=== PATIENT | male | born 1955 | race Caucasian/White ===

== ENCOUNTER 2021-10-01 08:59 | Inpatient (IN) ==
[2021-10-01] MEDS ORDERED: Ipratropium/Albuterol Neb 3 ML IH ONE (09:03)
[2021-10-01] MEDS ORDERED: predniSONE 20 MG TABLET PO ONE (09:03)
[2021-10-01] MEDS ORDERED: levoFLOXacin 750 MG/150 ML 750 MG/150 ML BAG IVPB ONE (09:13)
[2021-10-01 09:43] LABS: Basophils % 0.1 %; Hematocrit 44.9 % (37.5-50.1); Hemoglobin 14.5 g/dL (12.9-16.9); Immature Granulocytes % 0.5 % (0-4); Lymphocytes # 0.6 K/mcL (0.6-4.6); Lymphocytes % 7.5 %; Mean Corpuscular HGB Conc 32.3 g/dL (31.6-35.5); Mean Corpuscular Hemoglobin 29.4 pg (28.0-33.3); Mean Corpuscular Volume 91.1 fL (83.0-100.0); Mean Platelet Volume 9.7 fL (9.4-12.4); Monocytes # 0.3 K/mcL (0.0-1.3); Monocytes % 4.1 %; Neutrophils # 6.7 K/mcL (1.6-8.9); Platelet Count 210 K/mcL (140-400); Red Blood Count 4.93 M/mcL (4.19-5.50); Red Cell Distribution Width 12.7 % (11.5-14.5); Segmented Neutrophils % 87.8 %; White Blood Count 7.6 K/mcL (4.3-11.1)
[2021-10-01 10:22] LABS: Influenza A PCR Negative (Negative); Influenza B PCR Negative (Negative); Resp. Syncytial Virus PCR Negative (Negative)
[2021-10-01 10:26] LABS: SARS-CoV-2 by PCR (In House) Positive (Negative)
[2021-10-01 10:36] LABS: BUN/Creatinine Ratio 29 (6-26); Blood Urea Nitrogen 29 mg/dL (8-23); Calcium 8.5 mg/dL (8.6-10.3); Carbon Dioxide 25 mEq/L (23-29); Chloride 102 mEq/L (98-107); Glucose 168 mg/dL (70-105); Osmolality,Calculated 302 (280-300); Potassium 3.8 mEq/L (3.5-5.1); Sodium 141 mEq/L (136-145); Troponin I 0.07 ng/mL (< 0.04); eGFR For African Americans > 60 (> 60); eGFR For Non-African Americans > 60 (> 60)
[2021-10-01] MEDS ORDERED: Naloxone 0.4 MG/ML INJ IVP PRN (10:56)
[2021-10-01] MEDS ORDERED: Ipratropium 1 PUFF INHALER IH PRN (11:04)
[2021-10-01] MEDS ORDERED: Baclofen 10 MG TABLET PO PRN (11:07)
[2021-10-01 11:40] LABS: Alanine Aminotransferase 35 Units/L (7-52); Albumin 3.5 g/dL (3.5-5.7); Alkaline Phosphatase 115 Units/L (34-104); Aspartate Amino Transferase 60 Units/L (13-39); Bilirubin,Direct 0.2 mg/dL (0.0-0.2); Bilirubin,Indirect 0.6 mg/dL (0.0-1.0); Bilirubin,Total 0.8 mg/dL (0.3-1.0); Globulin 3.6 g/dL (2.4-3.5); Total Protein 7.1 g/dL (6.4-8.9)
[2021-10-01] MEDS ORDERED: Remdesivir 200 MG in 0.9 % Sodium Chloride 100 ML IVPB ONE (17:00)
[2021-10-01] MEDS ORDERED: Heparin 25,000UNIT/250ML 1/2NS 25,000 UNIT/250 ML IV.SOLN IVC SCH (17:15)
[2021-10-01] MEDS ORDERED: *HR* Heparin 5,000 UNIT/ML VIAL IVP ONE (17:15)
[2021-10-01] MEDS ORDERED: *HR* Heparin 5,000 UNIT/ML VIAL IVP PRN (17:15)
[2021-10-01 18:23] LABS: Hematocrit 42.5 % (37.5-50.1); Hemoglobin 14.4 g/dL (12.9-16.9); Mean Corpuscular HGB Conc 33.9 g/dL (31.6-35.5); Mean Corpuscular Hemoglobin 29.9 pg (28.0-33.3); Mean Corpuscular Volume 88.2 fL (83.0-100.0); Mean Platelet Volume 9.5 fL (9.4-12.4); Platelet Count 202 K/mcL (140-400); Red Blood Count 4.82 M/mcL (4.19-5.50); Red Cell Distribution Width 12.5 % (11.5-14.5)
[2021-10-01 18:31] LABS: INR 1.4; Prothrombin Time 15.4 Seconds (9.4-12.1)
[2021-10-01 18:34] LABS: Heparin anti-factor XA UFH < 0.04 IU/mL (0.30-0.70)
[2021-10-01] MEDS: Magnesium Oxide 400 MG TABLET PO SCH (20:14)
[2021-10-01] MEDS: Budesonide/Formoterol 160/4.5 1 PUFF INH IH SCH (22:13)
[2021-10-02 02:25] LABS: Basophils % 0.1 %; Hematocrit 43.9 % (37.5-50.1); Hemoglobin 14.7 g/dL (12.9-16.9); Immature Granulocytes % 0.6 % (0-4); Lymphocytes # 0.6 K/mcL (0.6-4.6); Lymphocytes % 6.9 %; Mean Corpuscular HGB Conc 33.5 g/dL (31.6-35.5); Mean Corpuscular Hemoglobin 29.9 pg (28.0-33.3); Mean Corpuscular Volume 89.2 fL (83.0-100.0); Monocytes # 0.6 K/mcL (0.0-1.3); Monocytes % 6.8 %; Neutrophils # 7.1 K/mcL (1.6-8.9); Platelet Count 207 K/mcL (140-400); Red Blood Count 4.92 M/mcL (4.19-5.50); Red Cell Distribution Width 12.5 % (11.5-14.5); Segmented Neutrophils % 85.6 %; White Blood Count 8.3 K/mcL (4.3-11.1)
[2021-10-02 02:37] LABS: Heparin anti-factor XA UFH 0.23 IU/mL (0.30-0.70)
[2021-10-02 02:45] LABS: BUN/Creatinine Ratio 36 (6-26); Blood Urea Nitrogen 33 mg/dL (8-23); Calcium 8.3 mg/dL (8.6-10.3); Carbon Dioxide 27 mEq/L (23-29); Chloride 103 mEq/L (98-107); Glucose 145 mg/dL (70-105); Osmolality,Calculated 300 (280-300); Potassium 4.3 mEq/L (3.5-5.1); Sodium 140 mEq/L (136-145); eGFR For African Americans > 60 (> 60); eGFR For Non-African Americans > 60 (> 60)
[2021-10-02 02:46] LABS: Albumin 3.4 g/dL (3.5-5.7); Bilirubin,Direct 0.2 mg/dL (0.0-0.2); Bilirubin,Indirect 0.5 mg/dL (0.0-1.0); Bilirubin,Total 0.7 mg/dL (0.3-1.0); Globulin 3.5 g/dL (2.4-3.5); Total Protein 6.9 g/dL (6.4-8.9)
[2021-10-02] MEDS: *HR* Heparin 5,000 UNIT/ML VIAL IVP PRN ×2 (03:36→10:47)
[2021-10-02] MEDS ORDERED: *HR* Enoxaparin 40 MG/0.4 ML SYRINGE SQ SCH (06:00)
[2021-10-02] MEDS: Budesonide/Formoterol 160/4.5 1 PUFF INH IH SCH ×2 (08:46→19:54)
[2021-10-02] MEDS: Magnesium Oxide 400 MG TABLET PO SCH ×2 (09:00→20:16)
[2021-10-02] MEDS: Aspirin Enteric Coated 81 MG Tablet PO SCH (09:00)
[2021-10-02] MEDS ORDERED: Perflutren Lipid Microsphere 1.3 ML in 0.9 % Sodium Chloride 8.7 ML IVP PRN (09:54)
[2021-10-02] MEDS ORDERED: Isovue-370 500 ML BOTTLE IVP ONE (15:52)
[2021-10-02] MEDS ORDERED: *HR* Heparin 5,000 UNIT/ML VIAL IVP PRN ×2 (16:07)
[2021-10-02 17:06] LABS: Hematocrit 46.4 % (37.5-50.1); Hemoglobin 15.2 g/dL (12.9-16.9); Mean Corpuscular HGB Conc 32.8 g/dL (31.6-35.5); Mean Corpuscular Hemoglobin 29.9 pg (28.0-33.3); Mean Corpuscular Volume 91.2 fL (83.0-100.0); Mean Platelet Volume 9.9 fL (9.4-12.4); Platelet Count 256 K/mcL (140-400); Red Blood Count 5.09 M/mcL (4.19-5.50); Red Cell Distribution Width 12.6 % (11.5-14.5); White Blood Count 9.5 K/mcL (4.3-11.1)
[2021-10-02 17:18] LABS: Heparin anti-factor XA UFH 0.33 IU/mL (0.30-0.70); INR 1.3; Prothrombin Time 14.5 Seconds (9.4-12.1)
[2021-10-02] MEDS: Remdesivir 100 MG in 0.9 % Sodium Chloride 100 ML IVPB SCH (17:43)
[2021-10-02] MEDS: Furosemide 40 MG/4 ML VIAL IVP SCH (17:43)
[2021-10-02] MEDS: Heparin 25,000UNIT/250ML 1/2NS 25,000 UNIT/250 ML IV.SOLN IVC SCH (18:02)
[2021-10-03 00:24] LABS: Basophils % 0.2 %; Hematocrit 45.5 % (37.5-50.1); Hemoglobin 15.1 g/dL (12.9-16.9); Immature Granulocytes % 0.7 % (0-4); Lymphocytes # 0.7 K/mcL (0.6-4.6); Lymphocytes % 7.2 %; Mean Corpuscular HGB Conc 33.2 g/dL (31.6-35.5); Mean Corpuscular Hemoglobin 30.2 pg (28.0-33.3); Mean Platelet Volume 9.9 fL (9.4-12.4); Monocytes # 0.5 K/mcL (0.0-1.3); Monocytes % 4.8 %; Neutrophils # 8.2 K/mcL (1.6-8.9); Platelet Count 255 K/mcL (140-400); Red Cell Distribution Width 12.7 % (11.5-14.5); Segmented Neutrophils % 87.1 %; White Blood Count 9.4 K/mcL (4.3-11.1)
[2021-10-03 00:39] LABS: Albumin 3.4 g/dL (3.5-5.7); Albumin/Globulin Ratio 0.9 (1.1-2.2); Bilirubin,Direct 0.2 mg/dL (0.0-0.2); Bilirubin,Indirect 0.6 mg/dL (0.0-1.0); Bilirubin,Total 0.8 mg/dL (0.3-1.0); Globulin 3.8 g/dL (2.4-3.5); Total Protein 7.2 g/dL (6.4-8.9)
[2021-10-03 00:40] LABS: BUN/Creatinine Ratio 38 (6-26); Blood Urea Nitrogen 36 mg/dL (8-23); Calcium 8.4 mg/dL (8.6-10.3); Carbon Dioxide 29 mEq/L (23-29); Chloride 101 mEq/L (98-107); Glucose 177 mg/dL (70-105); Osmolality,Calculated 301 (280-300); Potassium 3.8 mEq/L (3.5-5.1); Sodium 139 mEq/L (136-145); eGFR For African Americans > 60 (> 60); eGFR For Non-African Americans > 60 (> 60)
[2021-10-03] MEDS ORDERED: *HR* LORazepam 2 MG/ML VIAL IVP ONE (03:36)
[2021-10-03] MEDS: Budesonide/Formoterol 160/4.5 1 PUFF INH IH SCH ×2 (08:29→21:27)
[2021-10-03] MEDS: Furosemide 40 MG/4 ML VIAL IVP SCH (09:45)
[2021-10-03] MEDS: Dexamethasone Sodium Phos/PF 10 MG/ML VIAL IVP SCH (09:46)
[2021-10-03] MEDS: Aspirin Enteric Coated 81 MG Tablet PO SCH (09:47)
[2021-10-03] MEDS: Magnesium Oxide 400 MG TABLET PO SCH ×2 (09:47→20:56)
[2021-10-03] MEDS ORDERED: Dextrose Gel 15 GM/37.5 ML TUBE PO PRN ×2 (16:26)
[2021-10-03] MEDS ORDERED: *HR* Dextrose 50 % in Water (Syg) 50 ML SYRINGE IVP PRN (16:26)
[2021-10-03] MEDS ORDERED: D5% in Water 1,000 ML IVC PRN (16:26)
[2021-10-03] MEDS: Remdesivir 100 MG in 0.9 % Sodium Chloride 100 ML IVPB SCH (17:09)
[2021-10-03] MEDS: Heparin 25,000UNIT/250ML 1/2NS 25,000 UNIT/250 ML IV.SOLN IVC SCH (17:14)
[2021-10-03 17:29] LABS: Estimated Average Glucose 137 mg/dl; Hemoglobin A1C 6.4 %
[2021-10-03] MEDS: Insulin LISPRO 300 UNITS/3 ML VIAL SUBQ SCH ×2 (17:35→20:58)
[2021-10-04 00:39] LABS: Basophils % 0.3 %; Hematocrit 44.6 % (37.5-50.1); Hemoglobin 14.7 g/dL (12.9-16.9); Immature Granulocytes % 0.8 % (0-4); Lymphocytes # 0.8 K/mcL (0.6-4.6); Lymphocytes % 5.6 %; Mean Corpuscular Hemoglobin 30.1 pg (28.0-33.3); Mean Corpuscular Volume 91.4 fL (83.0-100.0); Mean Platelet Volume 9.9 fL (9.4-12.4); Monocytes # 0.5 K/mcL (0.0-1.3); Monocytes % 3.2 %; Neutrophils # 13.3 K/mcL (1.6-8.9); Nucleated Red Blood Cells 0.1 /100 WBC (0); Platelet Count 207 K/mcL (140-400); Red Blood Count 4.88 M/mcL (4.19-5.50); Red Cell Distribution Width 12.6 % (11.5-14.5); Segmented Neutrophils % 90.1 %
[2021-10-04 00:44] LABS: White Blood Count 14.8 K/mcL (4.3-11.1)
[2021-10-04 00:52] LABS: BUN/Creatinine Ratio 49 (6-26); Blood Urea Nitrogen 41 mg/dL (8-23); Calcium 8.2 mg/dL (8.6-10.3); Carbon Dioxide 27 mEq/L (23-29); Chloride 101 mEq/L (98-107); Glucose 165 mg/dL (70-105); Osmolality,Calculated 294 (280-300); Potassium 3.9 mEq/L (3.5-5.1); Sodium 135 mEq/L (136-145); eGFR For African Americans > 60 (> 60); eGFR For Non-African Americans > 60 (> 60)
[2021-10-04 00:53] LABS: Albumin 3.2 g/dL (3.5-5.7); Bilirubin,Direct 0.2 mg/dL (0.0-0.2); Bilirubin,Indirect 0.5 mg/dL (0.0-1.0); Bilirubin,Total 0.7 mg/dL (0.3-1.0); Globulin 3.3 g/dL (2.4-3.5); Total Protein 6.5 g/dL (6.4-8.9)
[2021-10-04] MEDS: Budesonide/Formoterol 160/4.5 1 PUFF INH IH SCH ×2 (07:29→20:01)
[2021-10-04] MEDS: Furosemide 40 MG/4 ML VIAL IVP SCH (08:32)
[2021-10-04] MEDS: Aspirin Enteric Coated 81 MG Tablet PO SCH (08:32)
[2021-10-04] MEDS: Magnesium Oxide 400 MG TABLET PO SCH ×2 (08:32→21:08)
[2021-10-04] MEDS: Insulin LISPRO 300 UNITS/3 ML VIAL SUBQ SCH ×4 (08:33→21:08)
[2021-10-04] MEDS: Dexamethasone Sodium Phos/PF 10 MG/ML VIAL IVP SCH (08:33)
[2021-10-04] MEDS: Heparin 25,000UNIT/250ML 1/2NS 25,000 UNIT/250 ML IV.SOLN IVC SCH (16:27)
[2021-10-04] MEDS: Remdesivir 100 MG in 0.9 % Sodium Chloride 100 ML IVPB SCH (17:26)
[2021-10-05 00:52] LABS: Basophils # 0.1 K/mcL (0.0-0.2); Basophils % 0.3 %; Hematocrit 45.6 % (37.5-50.1); Hemoglobin 15.2 g/dL (12.9-16.9); Immature Granulocytes % 1.4 % (0-4); Lymphocytes % 4.9 %; Mean Corpuscular HGB Conc 33.3 g/dL (31.6-35.5); Mean Corpuscular Hemoglobin 30.1 pg (28.0-33.3); Mean Corpuscular Volume 90.3 fL (83.0-100.0); Mean Platelet Volume 10.2 fL (9.4-12.4); Monocytes # 0.9 K/mcL (0.0-1.3); Monocytes % 4.4 %; Neutrophils # 17.7 K/mcL (1.6-8.9); Platelet Count 217 K/mcL (140-400); Red Blood Count 5.05 M/mcL (4.19-5.50); Red Cell Distribution Width 12.5 % (11.5-14.5); White Blood Count 19.9 K/mcL (4.3-11.1)
[2021-10-05 01:11] LABS: BUN/Creatinine Ratio 44 (6-26); Blood Urea Nitrogen 42 mg/dL (8-23); Calcium 8.3 mg/dL (8.6-10.3); Carbon Dioxide 28 mEq/L (23-29); Chloride 99 mEq/L (98-107); Glucose 186 mg/dL (70-105); Osmolality,Calculated 297 (280-300); Potassium 3.9 mEq/L (3.5-5.1); Sodium 136 mEq/L (136-145); eGFR For African Americans > 60 (> 60); eGFR For Non-African Americans > 60 (> 60)
[2021-10-05 01:12] LABS: Albumin 3.3 g/dL (3.5-5.7); Albumin/Globulin Ratio 1.1 (1.1-2.2); Bilirubin,Direct 0.2 mg/dL (0.0-0.2); Bilirubin,Indirect 0.6 mg/dL (0.0-1.0); Bilirubin,Total 0.8 mg/dL (0.3-1.0); Globulin 3.1 g/dL (2.4-3.5); Total Protein 6.4 g/dL (6.4-8.9)
[2021-10-05 01:20] LABS: Heparin anti-factor XA UFH 0.38 IU/mL (0.30-0.70)
[2021-10-05] MEDS: Dexamethasone Sodium Phos/PF 10 MG/ML VIAL IVP SCH (07:47)
[2021-10-05] MEDS: Furosemide 40 MG/4 ML VIAL IVP SCH (07:47)
[2021-10-05] MEDS: Aspirin Enteric Coated 81 MG Tablet PO SCH (07:48)
[2021-10-05] MEDS: Insulin LISPRO 300 UNITS/3 ML VIAL SUBQ SCH ×4 (07:48→20:39)
[2021-10-05] MEDS: Cholecalciferol (D-3) 1,000 UNIT (25MCG) TABLET PO SCH (07:48)
[2021-10-05] MEDS: Magnesium Oxide 400 MG TABLET PO SCH ×2 (07:48→20:43)
[2021-10-05] MEDS: Budesonide/Formoterol 160/4.5 1 PUFF INH IH SCH ×2 (08:12→20:19)
[2021-10-05] MEDS: Heparin 25,000UNIT/250ML 1/2NS 25,000 UNIT/250 ML IV.SOLN IVC SCH (14:00)
[2021-10-05] MEDS: Remdesivir 100 MG in 0.9 % Sodium Chloride 100 ML IVPB SCH (17:01)
[2021-10-05] MEDS ORDERED: Saline Nasal Spray 44 ML BOTTLE NS PRN (17:12)
[2021-10-05] MEDS: Acetaminophen 325 MG TABLET PO PRN (17:55)
[2021-10-06 01:12] LABS: Basophils % 0.2 %; Hematocrit 45.2 % (37.5-50.1); Hemoglobin 15.2 g/dL (12.9-16.9); Immature Granulocytes % 2.3 % (0-4); Lymphocytes # 0.8 K/mcL (0.6-4.6); Lymphocytes % 3.5 %; Mean Corpuscular HGB Conc 33.6 g/dL (31.6-35.5); Mean Corpuscular Hemoglobin 30.1 pg (28.0-33.3); Mean Corpuscular Volume 89.5 fL (83.0-100.0); Mean Platelet Volume 10.2 fL (9.4-12.4); Monocytes # 0.9 K/mcL (0.0-1.3); Monocytes % 4.3 %; Neutrophils # 19.4 K/mcL (1.6-8.9); Platelet Count 227 K/mcL (140-400); Red Blood Count 5.05 M/mcL (4.19-5.50); Red Cell Distribution Width 12.3 % (11.5-14.5); Segmented Neutrophils % 89.7 %; White Blood Count 21.7 K/mcL (4.3-11.1)
[2021-10-06 01:37] LABS: BUN/Creatinine Ratio 49 (6-26); Blood Urea Nitrogen 44 mg/dL (8-23); Calcium 8.2 mg/dL (8.6-10.3); Carbon Dioxide 31 mEq/L (23-29); Chloride 99 mEq/L (98-107); Glucose 151 mg/dL (70-105); Osmolality,Calculated 294 (280-300); Potassium 4.2 mEq/L (3.5-5.1); Sodium 135 mEq/L (136-145); eGFR For African Americans > 60 (> 60); eGFR For Non-African Americans > 60 (> 60)
[2021-10-06 01:38] LABS: Albumin 3.2 g/dL (3.5-5.7); Albumin/Globulin Ratio 1.1 (1.1-2.2); Bilirubin,Direct 0.2 mg/dL (0.0-0.2); Bilirubin,Indirect 0.6 mg/dL (0.0-1.0); Bilirubin,Total 0.8 mg/dL (0.3-1.0); Globulin 2.8 g/dL (2.4-3.5)
[2021-10-06] MEDS: Budesonide/Formoterol 160/4.5 1 PUFF INH IH SCH ×2 (07:49→20:07)
[2021-10-06] MEDS: Insulin LISPRO 300 UNITS/3 ML VIAL SUBQ SCH ×4 (08:13→20:35)
[2021-10-06] MEDS: Furosemide 40 MG/4 ML VIAL IVP SCH (09:13)
[2021-10-06] MEDS: Cholecalciferol (D-3) 1,000 UNIT (25MCG) TABLET PO SCH (09:13)
[2021-10-06] MEDS: Dexamethasone Sodium Phos/PF 10 MG/ML VIAL IVP SCH (09:13)
[2021-10-06] MEDS: Aspirin Enteric Coated 81 MG Tablet PO SCH (09:13)
[2021-10-06] MEDS: Magnesium Oxide 400 MG TABLET PO SCH ×2 (09:13→20:35)
[2021-10-06] MEDS: Heparin 25,000UNIT/250ML 1/2NS 25,000 UNIT/250 ML IV.SOLN IVC SCH (12:02)
[2021-10-07 02:26] LABS: Basophils # 0.1 K/mcL (0.0-0.2); Basophils % 0.3 %; Hematocrit 49.5 % (37.5-50.1); Hemoglobin 16.1 g/dL (12.9-16.9); Immature Granulocytes % 1.6 % (0-4); Lymphocytes # 0.7 K/mcL (0.6-4.6); Lymphocytes % 3.6 %; Mean Corpuscular HGB Conc 32.5 g/dL (31.6-35.5); Mean Corpuscular Hemoglobin 29.1 pg (28.0-33.3); Mean Corpuscular Volume 89.4 fL (83.0-100.0); Mean Platelet Volume 10.3 fL (9.4-12.4); Monocytes # 0.9 K/mcL (0.0-1.3); Monocytes % 4.3 %; Neutrophils # 18.3 K/mcL (1.6-8.9); Platelet Count 263 K/mcL (140-400); Red Blood Count 5.54 M/mcL (4.19-5.50); Red Cell Distribution Width 12.4 % (11.5-14.5); Segmented Neutrophils % 90.2 %; White Blood Count 20.3 K/mcL (4.3-11.1)
[2021-10-07 02:44] LABS: BUN/Creatinine Ratio 47 (6-26); Blood Urea Nitrogen 45 mg/dL (8-23); Calcium 7.9 mg/dL (8.6-10.3); Carbon Dioxide 33 mEq/L (23-29); Chloride 95 mEq/L (98-107); Glucose 158 mg/dL (70-105); Osmolality,Calculated 295 (280-300); Potassium 4.1 mEq/L (3.5-5.1); Sodium 135 mEq/L (136-145); eGFR For African Americans > 60 (> 60); eGFR For Non-African Americans > 60 (> 60)
[2021-10-07] MEDS: Budesonide/Formoterol 160/4.5 1 PUFF INH IH SCH ×2 (07:55→20:02)
[2021-10-07] MEDS: Magnesium Oxide 400 MG TABLET PO SCH ×2 (08:54→20:56)
[2021-10-07] MEDS: Aspirin Enteric Coated 81 MG Tablet PO SCH (08:54)
[2021-10-07] MEDS: Cholecalciferol (D-3) 1,000 UNIT (25MCG) TABLET PO SCH (08:54)
[2021-10-07] MEDS: Insulin LISPRO 300 UNITS/3 ML VIAL SUBQ SCH ×4 (08:54→22:33)
[2021-10-07] MEDS: Dexamethasone Sodium Phos/PF 10 MG/ML VIAL IVP SCH (08:55)
[2021-10-07] MEDS: Furosemide 40 MG/4 ML VIAL IVP SCH (08:55)
[2021-10-08 05:12] LABS: Basophils % 0.2 %; Eosinophils % 0.2 %; Hematocrit 50.1 % (37.5-50.1); Hemoglobin 16.2 g/dL (12.9-16.9); Immature Granulocytes % 1.6 % (0-4); Lymphocytes # 0.9 K/mcL (0.6-4.6); Lymphocytes % 4.4 %; Mean Corpuscular HGB Conc 32.3 g/dL (31.6-35.5); Mean Corpuscular Hemoglobin 29.1 pg (28.0-33.3); Mean Corpuscular Volume 89.9 fL (83.0-100.0); Mean Platelet Volume 10.5 fL (9.4-12.4); Monocytes # 0.8 K/mcL (0.0-1.3); Monocytes % 3.9 %; Neutrophils # 18.9 K/mcL (1.6-8.9); Platelet Count 260 K/mcL (140-400); Red Blood Count 5.57 M/mcL (4.19-5.50); Red Cell Distribution Width 12.5 % (11.5-14.5); Segmented Neutrophils % 89.7 %; White Blood Count 21.1 K/mcL (4.3-11.1)
[2021-10-08 05:29] LABS: BUN/Creatinine Ratio 41 (6-26); Blood Urea Nitrogen 45 mg/dL (8-23); Calcium 8.4 mg/dL (8.6-10.3); Carbon Dioxide 35 mEq/L (23-29); Chloride 94 mEq/L (98-107); Glucose 143 mg/dL (70-105); Osmolality,Calculated 292 (280-300); Potassium 4.4 mEq/L (3.5-5.1); Sodium 134 mEq/L (136-145); eGFR For African Americans > 60 (> 60); eGFR For Non-African Americans > 60 (> 60)
[2021-10-08] MEDS: Budesonide/Formoterol 160/4.5 1 PUFF INH IH SCH ×2 (07:41→20:30)
[2021-10-08] MEDS: Cholecalciferol (D-3) 1,000 UNIT (25MCG) TABLET PO SCH (09:05)
[2021-10-08] MEDS: Magnesium Oxide 400 MG TABLET PO SCH ×2 (09:06→20:27)
[2021-10-08] MEDS: Aspirin Enteric Coated 81 MG Tablet PO SCH (09:06)
[2021-10-08] MEDS: Dexamethasone Sodium Phos/PF 10 MG/ML VIAL IVP SCH (09:06)
[2021-10-08] MEDS: Furosemide 40 MG/4 ML VIAL IVP SCH (09:06)
[2021-10-08] MEDS: Insulin LISPRO 300 UNITS/3 ML VIAL SUBQ SCH ×4 (09:07→20:28)
[2021-10-08] MEDS: Heparin 25,000UNIT/250ML 1/2NS 25,000 UNIT/250 ML IV.SOLN IVC SCH ×2 (10:04→20:55)
[2021-10-09 02:26] LABS: Basophils % 0.2 %; Eosinophils % 0.2 %; Hematocrit 48.1 % (37.5-50.1); Hemoglobin 16.2 g/dL (12.9-16.9); Immature Granulocytes % 1.2 % (0-4); Lymphocytes # 0.7 K/mcL (0.6-4.6); Lymphocytes % 3.4 %; Mean Corpuscular HGB Conc 33.7 g/dL (31.6-35.5); Mean Corpuscular Hemoglobin 29.6 pg (28.0-33.3); Mean Corpuscular Volume 87.9 fL (83.0-100.0); Mean Platelet Volume 10.6 fL (9.4-12.4); Monocytes # 0.9 K/mcL (0.0-1.3); Monocytes % 4.4 %; Neutrophils # 18.1 K/mcL (1.6-8.9); Platelet Count 266 K/mcL (140-400); Red Blood Count 5.47 M/mcL (4.19-5.50); Red Cell Distribution Width 12.4 % (11.5-14.5); Segmented Neutrophils % 90.6 %; White Blood Count 19.9 K/mcL (4.3-11.1)
[2021-10-09 02:34] LABS: BUN/Creatinine Ratio 46 (6-26); Blood Urea Nitrogen 42 mg/dL (8-23); Calcium 8.3 mg/dL (8.6-10.3); Carbon Dioxide 35 mEq/L (23-29); Chloride 93 mEq/L (98-107); Glucose 239 mg/dL (70-105); Osmolality,Calculated 294 (280-300); Potassium 4.3 mEq/L (3.5-5.1); Sodium 133 mEq/L (136-145); eGFR For African Americans > 60 (> 60); eGFR For Non-African Americans > 60 (> 60)
[2021-10-09] MEDS: Budesonide/Formoterol 160/4.5 1 PUFF INH IH SCH ×2 (07:35→19:52)
[2021-10-09] MEDS: Heparin 25,000UNIT/250ML 1/2NS 25,000 UNIT/250 ML IV.SOLN IVC SCH ×2 (07:35→12:56)
[2021-10-09] MEDS: Insulin LISPRO 300 UNITS/3 ML VIAL SUBQ SCH ×4 (09:28→21:21)
[2021-10-09] MEDS: Furosemide 40 MG/4 ML VIAL IVP SCH (09:35)
[2021-10-09] MEDS: Dexamethasone Sodium Phos/PF 10 MG/ML VIAL IVP SCH (09:37)
[2021-10-09] MEDS: Magnesium Oxide 400 MG TABLET PO SCH ×2 (09:38→21:21)
[2021-10-09] MEDS: Cholecalciferol (D-3) 1,000 UNIT (25MCG) TABLET PO SCH (09:39)
[2021-10-09] MEDS: Aspirin Enteric Coated 81 MG Tablet PO SCH (09:39)
[2021-10-09] MEDS: Apixaban 5 MG TABLET PO SCH (21:21)
[2021-10-10 03:36] LABS: Hematocrit 51.2 % (37.5-50.1); Hemoglobin 16.7 g/dL (12.9-16.9); Mean Corpuscular HGB Conc 32.6 g/dL (31.6-35.5); Mean Corpuscular Hemoglobin 29.4 pg (28.0-33.3); Mean Corpuscular Volume 90.1 fL (83.0-100.0); Mean Platelet Volume 10.8 fL (9.4-12.4); Platelet Count 236 K/mcL (140-400); Red Blood Count 5.68 M/mcL (4.19-5.50); Red Cell Distribution Width 12.6 % (11.5-14.5); White Blood Count 19.6 K/mcL (4.3-11.1)
[2021-10-10 03:54] LABS: BUN/Creatinine Ratio 37 (6-26); Blood Urea Nitrogen 36 mg/dL (8-23); Calcium 8.6 mg/dL (8.6-10.3); Carbon Dioxide 32 mEq/L (23-29); Chloride 97 mEq/L (98-107); Glucose 161 mg/dL (70-105); Osmolality,Calculated 286 (280-300); Potassium 4.6 mEq/L (3.5-5.1); Sodium 132 mEq/L (136-145); eGFR For African Americans > 60 (> 60); eGFR For Non-African Americans > 60 (> 60)
[2021-10-10] MEDS: Acetaminophen 325 MG TABLET PO PRN ×2 (05:33→21:34)
[2021-10-10] MEDS: Budesonide/Formoterol 160/4.5 1 PUFF INH IH SCH ×2 (08:09→19:56)
[2021-10-10] MEDS: Insulin LISPRO 300 UNITS/3 ML VIAL SUBQ SCH ×4 (10:01→21:30)
[2021-10-10] MEDS: Apixaban 5 MG TABLET PO SCH ×2 (10:05→21:19)
[2021-10-10] MEDS: Cholecalciferol (D-3) 1,000 UNIT (25MCG) TABLET PO SCH (10:05)
[2021-10-10] MEDS: Magnesium Oxide 400 MG TABLET PO SCH ×2 (10:06→21:19)
[2021-10-10] MEDS: Dexamethasone Sodium Phos/PF 10 MG/ML VIAL IVP SCH (10:06)
[2021-10-10] MEDS: Aspirin Enteric Coated 81 MG Tablet PO SCH (10:06)
[2021-10-10] MEDS: Furosemide 40 MG/4 ML VIAL IVP SCH (10:06)
[2021-10-10] MEDS: Saliva Stimulant 44.3ml BOTTLE PO PRN (17:32)
[2021-10-10] MEDS: traZODone 50 MG TABLET PO PRN (21:19)
[2021-10-10] MEDS: Gabapentin 300 MG CAPSULE PO PRN (21:20)
[2021-10-11] MEDS: Budesonide/Formoterol 160/4.5 1 PUFF INH IH SCH ×2 (08:07→19:23)
[2021-10-11] MEDS: Aspirin Enteric Coated 81 MG Tablet PO SCH (08:53)
[2021-10-11] MEDS: Furosemide 40 MG/4 ML VIAL IVP SCH (08:53)
[2021-10-11] MEDS: Insulin LISPRO 300 UNITS/3 ML VIAL SUBQ SCH ×4 (08:53→20:03)
[2021-10-11] MEDS: Apixaban 5 MG TABLET PO SCH ×2 (08:53→19:47)
[2021-10-11] MEDS: Cholecalciferol (D-3) 1,000 UNIT (25MCG) TABLET PO SCH (08:53)
[2021-10-11] MEDS: Dexamethasone Sodium Phos/PF 10 MG/ML VIAL IVP SCH (08:53)
[2021-10-11] MEDS: Magnesium Oxide 400 MG TABLET PO SCH ×2 (08:53→19:47)
[2021-10-11] MEDS: Sennosides/Docusate Sodium TABLET PO PRN (19:47)
[2021-10-12] MEDS: Apixaban 5 MG TABLET PO SCH ×2 (08:53→21:02)
[2021-10-12] MEDS: Magnesium Oxide 400 MG TABLET PO SCH ×2 (08:53→21:02)
[2021-10-12] MEDS: Aspirin Enteric Coated 81 MG Tablet PO SCH (08:53)
[2021-10-12] MEDS: Cholecalciferol (D-3) 1,000 UNIT (25MCG) TABLET PO SCH (08:53)
[2021-10-12] MEDS: Furosemide 40 MG/4 ML VIAL IVP SCH (08:54)
[2021-10-12] MEDS: Dexamethasone Sodium Phos/PF 10 MG/ML VIAL IVP SCH (08:54)
[2021-10-12] MEDS: Insulin LISPRO 300 UNITS/3 ML VIAL SUBQ SCH ×4 (08:54→21:03)
[2021-10-12] MEDS: Fluticasone Propionate Nasal 50 MCG/SPRAY BOTTLE NS PRN (08:55)
[2021-10-12] MEDS: Sennosides/Docusate Sodium TABLET PO PRN ×2 (10:41→21:02)
[2021-10-12] MEDS: Budesonide/Formoterol 160/4.5 1 PUFF INH IH SCH ×2 (11:49→19:48)
[2021-10-12] MEDS: traZODone 50 MG TABLET PO PRN (21:02)
[2021-10-13] MEDS: Budesonide/Formoterol 160/4.5 1 PUFF INH IH SCH ×2 (07:48→19:59)
[2021-10-13] MEDS: Cholecalciferol (D-3) 1,000 UNIT (25MCG) TABLET PO SCH (09:33)
[2021-10-13] MEDS: Apixaban 5 MG TABLET PO SCH ×2 (09:34→20:52)
[2021-10-13] MEDS: Magnesium Oxide 400 MG TABLET PO SCH ×2 (09:35→20:52)
[2021-10-13] MEDS: Furosemide 40 MG/4 ML VIAL IVP SCH (09:35)
[2021-10-13] MEDS: Dexamethasone Sodium Phos/PF 10 MG/ML VIAL IVP SCH (09:35)
[2021-10-13] MEDS: Aspirin Enteric Coated 81 MG Tablet PO SCH (09:36)
[2021-10-13] MEDS: Gabapentin 300 MG CAPSULE PO PRN (09:36)
[2021-10-13] MEDS: Fluticasone Propionate Nasal 50 MCG/SPRAY BOTTLE NS PRN (09:49)
[2021-10-13] MEDS: Saliva Stimulant 44.3ml BOTTLE PO PRN (09:50)
[2021-10-13] MEDS: Insulin LISPRO 300 UNITS/3 ML VIAL SUBQ SCH ×4 (09:51→20:53)
[2021-10-13] MEDS ORDERED: MOM Conc 10 ML UD.LIQ PO ONE (10:26)
[2021-10-13] MEDS: Sennosides/Docusate Sodium TABLET PO PRN (20:53)
[2021-10-13] MEDS: traZODone 50 MG TABLET PO PRN (22:38)
[2021-10-14] MEDS: Budesonide/Formoterol 160/4.5 1 PUFF INH IH SCH ×2 (08:09→19:31)
[2021-10-14] MEDS: Dexamethasone Sodium Phos/PF 10 MG/ML VIAL IVP SCH (11:07)
[2021-10-14] MEDS: Aspirin Enteric Coated 81 MG Tablet PO SCH (11:07)
[2021-10-14] MEDS: Cholecalciferol (D-3) 1,000 UNIT (25MCG) TABLET PO SCH (11:07)
[2021-10-14] MEDS: Insulin LISPRO 300 UNITS/3 ML VIAL SUBQ SCH ×4 (11:08→19:35)
[2021-10-14] MEDS: Magnesium Oxide 400 MG TABLET PO SCH ×2 (11:08→19:33)
[2021-10-14] MEDS: Apixaban 5 MG TABLET PO SCH ×2 (11:09→19:33)
[2021-10-14] MEDS: Furosemide 40 MG/4 ML VIAL IVP SCH (11:09)
[2021-10-14] MEDS: Acetaminophen 325 MG TABLET PO PRN (11:20)
[2021-10-14] MEDS ORDERED: MOM Conc 10 ML UD.LIQ PO ONE (12:29)
[2021-10-14] MEDS: traZODone 50 MG TABLET PO PRN (19:33)
[2021-10-14] MEDS: Sennosides/Docusate Sodium TABLET PO PRN (19:34)
[2021-10-15] MEDS: Budesonide/Formoterol 160/4.5 1 PUFF INH IH SCH ×2 (08:17→20:17)
[2021-10-15 09:12] LABS: BUN/Creatinine Ratio 40 (6-26); Blood Urea Nitrogen 33 mg/dL (8-23); Calcium 8.7 mg/dL (8.6-10.3); Carbon Dioxide 36 mEq/L (23-29); Chloride 94 mEq/L (98-107); Glucose 153 mg/dL (70-105); Osmolality,Calculated 290 (280-300); Potassium 4.4 mEq/L (3.5-5.1); Sodium 135 mEq/L (136-145); eGFR For African Americans > 60 (> 60); eGFR For Non-African Americans > 60 (> 60)
[2021-10-15] MEDS: Magnesium Oxide 400 MG TABLET PO SCH ×2 (09:46→20:32)
[2021-10-15] MEDS: Cholecalciferol (D-3) 1,000 UNIT (25MCG) TABLET PO SCH (09:46)
[2021-10-15] MEDS: Aspirin Enteric Coated 81 MG Tablet PO SCH (09:46)
[2021-10-15] MEDS: Apixaban 5 MG TABLET PO SCH ×2 (09:46→20:32)
[2021-10-15] MEDS: dexAMETHasone 4 MG TABLET PO SCH (09:46)
[2021-10-15] MEDS: Furosemide 40 MG/4 ML VIAL IVP SCH (09:46)
[2021-10-15] MEDS: Insulin LISPRO 300 UNITS/3 ML VIAL SUBQ SCH ×4 (09:47→20:33)
[2021-10-15] MEDS: Insulin DETEMIR 100 UNIT/ML X5UNITS SUBQ SCH ×2 (09:52→20:32)
[2021-10-15] MEDS: Sennosides/Docusate Sodium TABLET PO PRN (13:20)
[2021-10-15] MEDS: polyethylene glycoL 3350 17 GM POWD.PACK PO SCH (16:43)
[2021-10-15] MEDS: traZODone 50 MG TABLET PO PRN (22:44)
[2021-10-16] MEDS: Budesonide/Formoterol 160/4.5 1 PUFF INH IH SCH ×2 (07:50→21:33)
[2021-10-16] MEDS: Insulin LISPRO 300 UNITS/3 ML VIAL SUBQ SCH ×4 (09:18→22:08)
[2021-10-16] MEDS: Magnesium Oxide 400 MG TABLET PO SCH ×2 (09:19→22:07)
[2021-10-16] MEDS: dexAMETHasone 4 MG TABLET PO SCH (09:19)
[2021-10-16] MEDS: Furosemide 40 MG/4 ML VIAL IVP SCH (09:19)
[2021-10-16] MEDS: Aspirin Enteric Coated 81 MG Tablet PO SCH (09:19)
[2021-10-16] MEDS: polyethylene glycoL 3350 17 GM POWD.PACK PO SCH (09:19)
[2021-10-16] MEDS: Apixaban 5 MG TABLET PO SCH ×2 (09:19→22:08)
[2021-10-16] MEDS: Cholecalciferol (D-3) 1,000 UNIT (25MCG) TABLET PO SCH (09:19)
[2021-10-16] MEDS: Insulin DETEMIR 100 UNIT/ML X5UNITS SUBQ SCH ×2 (09:24→22:08)
[2021-10-16] MEDS: traZODone 50 MG TABLET PO PRN (22:08)
[2021-10-17] MEDS: Budesonide/Formoterol 160/4.5 1 PUFF INH IH SCH (07:49)
[2021-10-17] MEDS: Insulin LISPRO 300 UNITS/3 ML VIAL SUBQ SCH ×3 (11:04→17:17)
[2021-10-17] MEDS: Magnesium Oxide 400 MG TABLET PO SCH (11:04)
[2021-10-17] MEDS: Cholecalciferol (D-3) 1,000 UNIT (25MCG) TABLET PO SCH (11:04)
[2021-10-17] MEDS: dexAMETHasone 4 MG TABLET PO SCH (11:04)
[2021-10-17] MEDS: Aspirin Enteric Coated 81 MG Tablet PO SCH (11:06)
[2021-10-17] MEDS: Furosemide 40 MG/4 ML VIAL IVP SCH (11:06)
[2021-10-17] MEDS: Apixaban 5 MG TABLET PO SCH (11:06)
[2021-10-17] MEDS: Gabapentin 300 MG CAPSULE PO PRN (11:07)
[2021-10-17] MEDS: polyethylene glycoL 3350 17 GM POWD.PACK PO SCH (11:07)
[2021-10-17] MEDS: Insulin DETEMIR 100 UNIT/ML X5UNITS SUBQ SCH (11:22)
[2021-10-17 16:49] VITALS: BP 109/77; PULSE 82; TEMP 98.6; O2SAT 94
== END 2021-10-17 17:35 | disposition home or self-care (01) | DRG 137 ==
LOC: EMEROOARM 08:59 → 3NENU 16:26 → SUATTDRO 16:26 → 3NENU 17:28
PROVIDERS: ADMIT Internal Medicine; ATTEND Student in an Organized Health Care Education/Training Program